=== PATIENT | female | born 1950 | race African-American/Black ===

== ENCOUNTER 2020-01-10 12:56 | Emergency (ER) | payer OTHER ==
[~2020-01-10] VITALS: Ht 175.3 cm; Wt 67.0 kg
[~2020-01-10 12:56] MED LIST: HYDR25TA; LORA1TAB; MELO-106; METO5TAB94; OMEP20CA14; SERT50TA12
[2020-01-10 12:57] VITALS: BP 143/77
[2020-01-10] MEDS ORDERED: LIDOCAINE 5% PATCH TOP STA (14:08)
[2020-01-10] MEDS ORDERED: ACETAMINOPHEN 500MG TABLET PO ONE (14:15)
== END 2020-01-10 14:30 | disposition left against medical advice (07) ==
LOC: ER 12:56 → EDBD 12:56 → ER 14:30
DX: M54.2 Cervicalgia (principal); M25.512 Pain in left shoulder; M25.552 Pain in left hip; I10 Essential (primary) hypertension; F41.9 Anxiety disorder, unspecified; F32.9 Major depressive disorder, single episode, unspecified; Z88.2 Allergy status to sulfonamides; V43.52XA Car driver injured in collision with other type car in traffic accident, initial encounter; Y93.89 Activity, other specified; Y92.488 Other paved roadways as the place of occurrence of the external cause
CPT/HCPCS: 99283

== ENCOUNTER 2024-01-09 08:51 | Emergency (ER) | payer MEDICAID, OTHER ==
[~2024-01-09] VITALS: Ht 170.2 cm; Wt 95.0 kg
[~2024-01-09 08:51] MED LIST changes: +SERT-422; -SERT50TA12
[2024-01-09 08:54] VITALS: TEMP 97.7
[2024-01-09 09:20] VITALS: BP 144/88; PULSE 77; RESP 16
[2024-01-09] MEDS: LORAZEPAM 2MG/ML INJ IV ONE (09:30)
[2024-01-09 09:49] LABS: BASOPHILS % 0.8 % (0.0-2.0); EOSINOPHILS % 2.8 % (0.0-5.0); HEMATOCRIT. 39.2 % (36.0-48.0); HEMOGLOBIN. 13.2 g/dL (12.0-16.0); LYMPHOCYTES % 29.8 % (20.0-50.0); MEAN CORPUSCULAR HEMOGLOBIN 28.4 pg (28.0-32.0); MEAN CORPUSCULAR HGB CONC 33.6 g/dL (31.0-37.0); MEAN CORPUSCULAR VOLUME 84.6 fL (81.0-99.0); MEAN PLATELET VOLUME 8.9 fl (7.4-10.4); MONOCYTES % 12.8 % (2.0-8.0); NEUTROPHILS % 53.8 % (40.0-76.0); PLATELET 194 x1000/uL (130-400); RED BLOOD CELL COUNT 4.64 mill/uL (4.2-5.4); RED CELL DISTRIBUTION WIDTH 13.2 % (11.6-14.6); WHITE BLOOD COUNT 3.9 x1000/uL (4.5-11.0)
[2024-01-09 11:53] LABS: ALANINE AMINOTRANSFERASE 183 IU/L (10-49); ALBUMIN 4.3 g/dL (3.2-4.8); ASPARTATE AMINOTRANSFERASE 129 IU/L (<34); BILIRUBIN TOTAL 1.8 mg/dL (0.1-1.0); CALCIUM 9.7 mg/dL (8.7-10.4); CARBON DIOXIDE 23 mEq/L (21-32); CHLORIDE 104 mEq/L (98-107); CREATININE 0.9 mg/dL (0.6-1.0); GLUCOSE 128 mg/dL (70-105); POTASSIUM 3.5 mEq/L (3.5-5.1); PROTEIN TOTAL 7.7 g/dL (6.0-8.3); SODIUM 141 mEq/L (136-145); TROPONIN I HIGH SENSITIVITY 11 ng/L (3.0-34); UREA NITROGEN BLOOD 12 mg/dL (9-23)
[2024-01-09 12:04] LABS: TROPONIN I HIGH SENSITIVITY 10 ng/L (3.0-34)
[2024-01-09] MEDS ORDERED: HYDR25TA PO (15:43)
[2024-01-09] MEDS ORDERED: AMLO5TAB88 PO (15:44)
[2024-01-09] MEDS ORDERED: SERT-422 PO (15:44)
[2024-01-09] MEDS ORDERED: TRAZ-251 PO (15:48)
[2024-01-09] MEDS ORDERED: DICL100G58 TP (15:48)
[2024-01-09] MEDS ORDERED: ATOR40TA70 PO (15:48)
[2024-01-09] MEDS ORDERED: ZOLP5TAB8 PO (15:48)
[2024-01-09] MEDS ORDERED: GABA-529 PO (15:48)
== END 2024-01-09 15:36 | disposition left against medical advice (07) ==
LOC: ER 10:26
DX: R06.02 Shortness of breath (principal); F41.9 Anxiety disorder, unspecified; F32.9 Major depressive disorder, single episode, unspecified; I10 Essential (primary) hypertension; Z79.899 Other long term (current) drug therapy
CPT/HCPCS: 99285; 74176; 96374; 76700; 71045; 80053; 83880; 85025; 84484; 36415; 93005; J2060